=== PATIENT | male | born 1960 | race African-American/Black ===

== ENCOUNTER → 2020-04-18 | Outpatient (CLI) | payer MEDICAID ==
[~2020-04-18] MED LIST: HYDR12.54 PO; LOSA50TA41 PO; METF-414 PO
== END | disposition home or self-care (01) ==
LOC: LAB 10:20
PROVIDERS: ATTEND Surgery
DX: Z01.812 Encounter for preprocedural laboratory examination (principal); Z20.828 Contact with and (suspected) exposure to other viral communicable diseases
CPT/HCPCS: C9803; U0003

== ENCOUNTER 2020-04-22 06:24 | Day surgery (SDC) | payer MEDICAID ==
[~2020-04-22] VITALS: Ht 182.9 cm; Wt 90.7 kg
[2020-04-22 07:13] LABS: *AMPHETAMINES SCREEN URINE NEGATIVE (NEGATIVE)
[2020-04-22] MEDS ORDERED: LACTATED RINGERS 1,000 ML IV SCH (07:13)
[2020-04-22 07:14] LABS: *BARBITURATES SCREEN URINE NEGATIVE (NEGATIVE); *BENZODIAZEPINES SCREEN URINE NEGATIVE (NEGATIVE); CANNABINOID URINE SCREEN NEGATIVE (NEGATIVE)
[2020-04-22 07:15] LABS: *COCAINE SCREEN URINE NEGATIVE (NEGATIVE); METHADONE URINE SCREEN NEGATIVE (NEGATIVE); OPIATES URINE SCREEN NEGATIVE (NEGATIVE); PHENCYCLIDINE URINE SCREEN NEGATIVE (NEGATIVE)
[2020-04-22] MEDS ORDERED: SKIN ADHESIVE 0.7 GM EA TOP ONE (07:16)
[2020-04-22] MEDS ORDERED: BUPIVACAINE HCL 0.5% (5MG/ML) 50ML ONE (07:17)
[2020-04-22] MEDS ORDERED: LOSA50TA41 PO (07:35)
[2020-04-22] MEDS ORDERED: HYDR12.54 PO (07:35)
[2020-04-22] MEDS ORDERED: METF-414 PO (07:35)
[2020-04-22] MEDS ORDERED: SODIUM CHLORIDE 0.9% 10ML VIAL ONE (08:04)
[2020-04-22] MEDS ORDERED: PROPOFOL 200MG/20ML VIAL IV ONE (08:04)
[2020-04-22] MEDS ORDERED: CEFAZOLIN SODIUM 1000MG/VIAL ONE (08:04)
[2020-04-22] MEDS ORDERED: LIDOCAINE HCL/PF 1% 10 MG/ML 5ML VIAL ONE (08:04)
[2020-04-22] MEDS ORDERED: ROCURONIUM BROMIDE 10MG/ML VIAL 5ML IV ONE (08:04)
[2020-04-22] MEDS ORDERED: PHENYLEPHRINE HCL 10 MG/ML 1ML (IV VIAL) IV ONE (08:05)
[2020-04-22] MEDS ORDERED: ONDANSETRON HCL 4MG/2ML INJ ONE (08:05)
[2020-04-22] MEDS ORDERED: METOCLOPRAMIDE HCL 10MG/2ML VIAL ONE (08:05)
[2020-04-22] MEDS ORDERED: FENTANYL CITRATE/PF 50MCG/ML 5ML VIAL ONE (08:11)
[2020-04-22] MEDS ORDERED: HYDROMORPHONE HCL/PF 2MG/ML (OR) ONE (09:54)
[2020-04-22] MEDS: HYDROMORPHONE HCL/PF 2MG/ML CPJ IV PRN ×4 (11:32→11:52)
[2020-04-22] MEDS ORDERED: HYDROCODONE/ACETAMINOPHEN 5/325MG TABLET PO SCH (12:00)
[2020-04-22 12:22] VITALS: BP 172/96
== END 2020-04-22 12:45 | disposition home or self-care (01) ==
LOC: OR 06:24
PROVIDERS: ATTEND Surgery
DX: K43.6 Other and unspecified ventral hernia with obstruction, without gangrene (principal); I10 Essential (primary) hypertension; E78.00 Pure hypercholesterolemia, unspecified; E11.9 Type 2 diabetes mellitus without complications; N40.0 Benign prostatic hyperplasia without lower urinary tract symptoms; Z79.84 Long term (current) use of oral hypoglycemic drugs; Z79.899 Other long term (current) drug therapy; Z98.890 Other specified postprocedural states
CPT/HCPCS: 49561; 49568; 80305; 82962; 88302; C1781; J0690; J1170; J2370; J2405; J2704; J2765; J3010; J3490

== ENCOUNTER 2020-05-06 09:55 | Emergency (ER) | payer MEDICAID ==
[~2020-05-06] VITALS: Ht 185.4 cm; Wt 113.0 kg
[2020-05-06] MEDS ORDERED: ONDANSETRON HCL 4MG/2ML INJ IV STA (11:43)
[2020-05-06] MEDS ORDERED: MORPHINE SULFATE 4 MG/ML CPJ (NOT FOR IM USE) IV STA (11:43)
[2020-05-06] MEDS ORDERED: SODIUM CHLORIDE 0.9% 1,000 ML IV ONE (11:45)
[2020-05-06 12:38] LABS: BASOPHILS % 0.5 % (0.0-2.0); EOSINOPHILS % 0.9 % (0.0-5.0); HEMATOCRIT. 40.3 % (42.0-52.0); HEMOGLOBIN. 13.1 g/dL (14.0-18.0); LYMPHOCYTES % 30.5 % (20.0-50.0); MEAN CORPUSCULAR HEMOGLOBIN 26.4 pg (28.0-32.0); MEAN CORPUSCULAR VOLUME 81.6 fL (80.0-94.0); MEAN PLATELET VOLUME 10.2 fl (7.4-10.4); MONOCYTES % 11.9 % (2.0-8.0); NEUTROPHILS % 56.2 % (40.0-76.0); PLATELET 176 x1000/uL (130-400); RED BLOOD CELL COUNT 4.94 mill/uL (4.7-6.1); RED CELL DISTRIBUTION WIDTH 14.4 % (11.6-14.6)
[2020-05-06 12:43] LABS: CHLORIDE 107 mEq/L (98-107)
[2020-05-06 13:07] LABS: PARTIAL THROMBOPLASTIN TIME 29.1 sec (23.4-31.0); PROTHROMBIN TIME 10.8 sec (9.6-11.0)
[2020-05-06 14:39] LABS: CLARITY URINE CLEAR (CLEAR); COLOR URINE YELLOW (YELLOW); KETONES URINE NEGATIVE (NEGATIVE); LEUKOCYTE ESTERASE URINE NEGATIVE (NEGATIVE); NITRITE URINE NEGATIVE (NEGATIVE); OCCULT BLOOD URINE NEGATIVE (NEGATIVE); PROTEIN URINE NEGATIVE (NEGATIVE); SPECIFIC GRAVITY URINE 1.036 (1.005-1.030); UROBILINOGEN URINE 0.2 E.U./dL (0.2-1.0)
[2020-05-06 14:54] VITALS: BP 111/78
[2020-05-06] MEDS ORDERED: IOHEXOL-300 100 ML BOTTLE ONE (15:33)
== END 2020-05-06 15:17 | disposition home or self-care (01) ==
LOC: ER 09:55
DX: L76.34 Postprocedural seroma of skin and subcutaneous tissue following other procedure (principal); E11.9 Type 2 diabetes mellitus without complications; E78.00 Pure hypercholesterolemia, unspecified; I10 Essential (primary) hypertension
CPT/HCPCS: 36415; 71045; 74177; 76705; 80053; 81003; 83690; 85025; 85610; 85730; 86850; 86900; 86901; 96360; 96361; 99285; J7030; Q9967; Z7610

== ENCOUNTER 2022-07-26 08:32 | Emergency (ER) | payer MEDICAID, OTHER ==
[~2022-07-26] VITALS: Ht 182.9 cm; Wt 109.0 kg
[2022-07-26 09:06] VITALS: BP 165/100
[2022-07-26] MEDS ORDERED: LIDOCAINE HCL/PF 1% 10 MG/ML 5ML VIAL INFIL ONE (09:15)
[2022-07-26] MEDS ORDERED: LIDOCAINE HCL/PF 1% 10 MG/ML 5ML VIAL INFIL NR (13:15)
== END 2022-07-26 13:59 | disposition home or self-care (01) ==
LOC: ER 08:32
DX: L03.011 Cellulitis of right finger (principal); I10 Essential (primary) hypertension; E11.9 Type 2 diabetes mellitus without complications
CPT/HCPCS: 10060; 99282; J3490